=== PATIENT | male | born 1970 | race Caucasian/White ===

== ENCOUNTER → 2017-01-24 | Outpatient (CLI) | payer MEDICARE ==
[~2017-01-24] MED LIST: CLEOCIN HCL300 MG PO; CLINDAMYCIN HC300 MG PO; FLEXERIL 10 MG10 MG PO; LOVENOX SY40 MG/0.4 SQ; METHADONE HCL40 MG PO; MS CONTIN15 MG PO; PHENERGAN 12.12.5 M1 PO; ROCEPHIN 11 G/50 ML IM/IV; ROXICODONE TAB 55 MG PO; VITAMIN C 500500 MG PO; VITAMIN D50000 UNIT PO
[2017-01-24 12:51] LABS: HEMOGLOBIN 10.8 gm/dl (14.0-17.5); RED BLOOD COUNT 4.49 M/UL (4.20-5.50); WHITE BLOOD COUNT 8.9 K/UL (4.5-11.0)
== END ==
LOC: LBRF 12:18
PROVIDERS: Podiatrist Foot & Ankle Surgery
DX: M86.171 Other acute osteomyelitis, right ankle and foot (principal)
CPT/HCPCS: 85025; 86140

== ENCOUNTER 2020-12-24 17:46 | Inpatient (IN) | payer MEDICARE, OTHER ==
[~2020-12-24] VITALS: Ht 180.3 cm; Wt 129.9 kg
[2020-12-24 19:49] LABS: HEMOGLOBIN 10.9 gm/dl (14.0-17.5); RED BLOOD COUNT 4.2 M/UL (4.20-5.50); WHITE BLOOD COUNT 8.5 K/UL (4.5-11.0)
[2020-12-24 20:11] LABS: BUN/CREATININE RATIO 12 (0-10)
[2020-12-24] MEDS ORDERED: METHADOSE40 MG PO (22:16)
[2020-12-26 07:14] LABS: BUN/CREATININE RATIO 12 (0-10)
[2020-12-27 04:01] LABS: BUN/CREATININE RATIO 14 (0-10)
[2020-12-28 04:20] LABS: HEMOGLOBIN 11.1 gm/dl (14.0-17.5); RED BLOOD COUNT 4.3 M/UL (4.20-5.50); WHITE BLOOD COUNT 10.8 K/UL (4.5-11.0)
[2020-12-28 04:43] LABS: BUN/CREATININE RATIO 17 (0-10)
--- NOTE | 2020-12-28 10:31 | NUR ---
4FR SL PICC LINE PLACED UTILIZING ULTRASOUND. PICC LINE PLACED IN CEPHALIC VEIN, CUT TO 41 CM. UPPER ARM CIRC = 37.5 CM, LOWER ARM CIRC = 33.5 CM.
[2020-12-29 04:32] LABS: BUN/CREATININE RATIO 18 (0-10)
--- NOTE | 2020-12-29 11:23 | NUR ---
PT GOING TO SX AT THIS TIME NOTED
[2020-12-30 05:20] LABS: BUN/CREATININE RATIO 16 (0-10)
[2021-01-01 04:58] LABS: BUN/CREATININE RATIO 19 (0-10)
[2021-01-01] MEDS ORDERED: MEROPENEM1 GM IV (13:35)
[2021-01-01] MEDS ORDERED: STIMULANT LAXA1 EACH PO (13:35)
[2021-01-01] MEDS ORDERED: POLYETHYLENE GL17 GM PO (13:35)
--- NOTE | 2021-01-01 18:21 | NUR ---
CALLED REPORT TO KT AT [facility] PT LEAVING AT THIS TIME WOUND CARE DONE BEFORE PT LEFT ALSO WOUND SUPPLIES GIVE FOR SEVERAL DAYS PER HH REQUEST , LABS TO BE DRAWN 01/08/21 THEN 01/15/21 ORDERED
== END 2021-01-01 18:18 | disposition home or self-care (01) | DRG 464 ==
LOC: ER1 17:46 → MED SURG 4 21:14 → CDU 21:14 → MED SURG 4 22:43
PROVIDERS: Physician Assistant; Physician Assistant Medical; Podiatrist Foot & Ankle Surgery; ADMIT Internal Medicine Infectious Disease
PROC: 02HV33Z Insertion of Infusion Device into Superior Vena Cava, Percutaneous Approach (ICD-10-PCS; 2020-12-28)
PROC: 0Y6M0Z7 Detachment at Right Foot, Complete 4th Ray, Open Approach (ICD-10-PCS; 2020-12-29)
PROC: 0HRNXK3 Replacement of Left Foot Skin with Nonautologous Tissue Substitute, Full Thickness, External Approach (ICD-10-PCS; 2020-12-29)
PROC: 0JBQ0ZZ Excision of Right Foot Subcutaneous Tissue and Fascia, Open Approach (ICD-10-PCS; principal; 2020-12-29 14:15)
DX: M86.8X7 Other osteomyelitis, ankle and foot (principal); A52.16 Charcot's arthropathy (tabetic); I96 Gangrene, not elsewhere classified; L02.611 Cutaneous abscess of right foot; L03.115 Cellulitis of right lower limb; F11.20 Opioid dependence, uncomplicated; L98.499 Non-pressure chronic ulcer of skin of other sites with unspecified severity; Z20.822 Contact with and (suspected) exposure to COVID-19; M21.961 Unspecified acquired deformity of right lower leg; G62.9 Polyneuropathy, unspecified; G60.0 Hereditary motor and sensory neuropathy; F48.1 Depersonalization-derealization syndrome; F17.210 Nicotine dependence, cigarettes, uncomplicated; Z98.1 Arthrodesis status; Z90.49 Acquired absence of other specified parts of digestive tract; Z83.3 Family history of diabetes mellitus; Z82.49 Family history of ischemic heart disease and other diseases of the circulatory system; Z98.890 Other specified postprocedural states
CPT/HCPCS: 36415; 73630; 73718; 80048; 80053; 80202; 83605; 85025; 85027; 85652; 86140; 87040; 96365; 96375; 99284; J1335; J1650; J2001; J2185; J2250; J2405; J2543; J2704; J3010; J3370; J7050; J7070; J7120; Q4133; U0002

== ENCOUNTER → 2021-01-08 | Outpatient (CLI) | payer MEDICARE, OTHER ==
[~2021-01-08] MED LIST changes: +MEROPENEM1 GM IV; +METHADOSE40 MG PO; +POLYETHYLENE GL17 GM PO; +STIMULANT LAXA1 EACH PO
== END ==
LOC: KOH-I 08:58
DX: M79.671 Pain in right foot (principal); Z98.890 Other specified postprocedural states
CPT/HCPCS: 73630

== ENCOUNTER → 2021-01-22 | Outpatient (CLI) | payer MEDICARE, OTHER | LOC: KOH-I 08:44 | DX: M14.671 Charcot's joint, right ankle and foot (principal) | CPT/HCPCS: 73630 ==

== ENCOUNTER → 2021-06-06 | Outpatient (CLI) | payer MEDICARE ==
[2021-06-06 16:37] LABS: BUN/CREATININE RATIO 12 (0-10)
[2021-06-06 16:47] LABS: HEMOGLOBIN 10.4 gm/dl (14.0-17.5); RED BLOOD COUNT 3.86 M/UL (4.20-5.50); WHITE BLOOD COUNT 9.4 K/UL (4.5-11.0)
== END ==
LOC: LBRF 15:30
PROVIDERS: Podiatrist Foot & Ankle Surgery
DX: M86.171 Other acute osteomyelitis, right ankle and foot (principal); L02.611 Cutaneous abscess of right foot; L03.115 Cellulitis of right lower limb; G62.9 Polyneuropathy, unspecified; Z89.421 Acquired absence of other right toe(s); Z79.2 Long term (current) use of antibiotics
CPT/HCPCS: 80053; 80202; 85025; 85652; 86140

== ENCOUNTER → 2021-07-17 | Outpatient (CLI) | payer MEDICARE ==
[2021-07-17 15:14] LABS: HEMOGLOBIN 11.3 gm/dl (14.0-17.5); RED BLOOD COUNT 4.11 M/UL (4.20-5.50); WHITE BLOOD COUNT 9.2 K/UL (4.5-11.0)
[2021-07-17 15:43] LABS: BUN/CREATININE RATIO 14 (0-10)
== END ==
LOC: LBRF 14:31
PROVIDERS: Podiatrist Foot & Ankle Surgery
DX: M86.171 Other acute osteomyelitis, right ankle and foot (principal); I10 Essential (primary) hypertension
CPT/HCPCS: 80053; 85025; 85652; 86140

== ENCOUNTER → 2021-08-21 | Outpatient (CLI) | payer MEDICARE, OTHER ==
[2021-08-21 14:45] LABS: HEMOGLOBIN 11.1 gm/dl (14.0-17.5); RED BLOOD COUNT 4.29 M/UL (4.20-5.50); WHITE BLOOD COUNT 12.1 K/UL (4.5-11.0)
[2021-08-21 15:09] LABS: BUN/CREATININE RATIO 13 (0-10)
== END ==
LOC: LBRF 13:55
PROVIDERS: Podiatrist Foot & Ankle Surgery
DX: M86.171 Other acute osteomyelitis, right ankle and foot (principal); L02.611 Cutaneous abscess of right foot; L03.115 Cellulitis of right lower limb; M14.671 Charcot's joint, right ankle and foot; G62.9 Polyneuropathy, unspecified; Z45.2 Encounter for adjustment and management of vascular access device
CPT/HCPCS: 80053; 85025; 85652; 86140

== ENCOUNTER → 2021-09-25 | Outpatient (CLI) | payer MEDICARE, OTHER ==
[2021-09-25 15:03] LABS: HEMOGLOBIN 10.9 gm/dl (14.0-17.5); RED BLOOD COUNT 4.12 M/UL (4.20-5.50); WHITE BLOOD COUNT 8.6 K/UL (4.5-11.0)
[2021-09-25 15:28] LABS: BUN/CREATININE RATIO 14 (0-10)
== END ==
LOC: LBRF 14:17
PROVIDERS: Podiatrist Foot & Ankle Surgery
DX: M86.171 Other acute osteomyelitis, right ankle and foot (principal); L02.611 Cutaneous abscess of right foot; L03.115 Cellulitis of right lower limb; M14.671 Charcot's joint, right ankle and foot; G62.9 Polyneuropathy, unspecified; Z79.891 Long term (current) use of opiate analgesic
CPT/HCPCS: 80053; 85025; 85652; 86140